=== PATIENT | female | born 1985 | race Caucasian/White ===

== ENCOUNTER → 2020-02-14 14:08 | Outpatient (BNVA) | payer SELFPAY | PROVIDERS: Family Provider Family Medicine; PCP Family Medicine; Visit Provider Nurse Practitioner Women's Health | DX: Z01.419 Encounter for gynecological examination (general) (routine) without abnormal findings (principal); N92.0 Excessive and frequent menstruation with regular cycle | CPT/HCPCS: 88175 ==

== ENCOUNTER 2025-01-16 11:58 | Outpatient (CLI) | payer SELFPAY ==
--- NOTE | 2025-01-16 12:06 | MR_ITS ---
WS: [id number] MRI LUMBAR SPINE NONCONTRAST TECHNIQUE: Sagittal T1, T2 and STIR imaging. Axial T1 and T2 imaging. CLINICAL INFORMATION: CHRONIC LEFT SIDE LOW BACK PAIN W/L SIDED SCIATICA/LUMBAGO COMPARISON: None. FINDINGS: 7 cervical 12 thoracic and 4 nonrib bearing lumbar vertebral bodies. First sacral segment considered L5 for the purposes of this dictation. Recommend plain film correlation prior to surgical intervention. Large partially visualized cystic lesion inferior to the RIGHT hepatic lobe and adjacent to the RIGHT kidney. This measures 8.2 x 5.5 cm. This can followed up with contrast-enhanced CT abdomen pelvis or ultrasound. This is increased in size since 2010. L1-L2: Mild facet arthropathy. Spinal canal and foramen are patent. L2-L3: Mild annular bulging. Mild facet arthropathy. Spinal canal is patent. L3-L4: Mild annular bulging with slight narrowing of the LEFT greater than RIGHT subarticular recess. Moderate facet arthropathy. Foramen are patent. L4-L5: Prominent LEFT subarticular protrusion impinges the LEFT aspect of the thecal sac and traversing LEFT L5 and S1 nerve roots. Disc material measures 4 to 5 mm in AP dimension. Moderate LEFT RIGHT narrowing of the thecal sac. Mild LEFT foraminal narrowing. Moderate facet arthropathy. L5-S1: First sacral segment considered L5. Spinal canal and foramen are patent. Visualized pelvic bony structures: Normal. Paravertebral soft tissues: Normal. 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 7 cervical 12 thoracic and 4 nonrib bearing lumbar vertebral bodies. First sacral segment considered L5 for the purposes of this dictation. Recommend plai n film correlation prior to surgical intervention. 2. Prominence LEFT paracentral and subarticular protrusion L4-5 impinges the traversing left-sided nerve roots with moderate narrowing of the thecal sac. M ild LEFT L4-5 foraminal narrowing at this level. 3. Mild annular bulging L3-4 with narrowing of the LEFT greater than RIGHT sub articular recess. 4. Moderate facet arthropathy L3-4 and L4-5. 5. Large partially visualized cystic lesion inferior to the RIGHT hepatic lobe and adjacent to the RIGHT kidney. This measures 8.2 x 5.5 cm. This can followe d up with contrast-enhanced CT abdomen pelvis or ultrasound. This is increased in size since 2010.
== END 2025-01-16 11:59 | disposition home or self-care (01) ==
PROVIDERS: PCP Family Medicine; Visit Provider Nurse Practitioner Family
DX: M47.816 Spondylosis without myelopathy or radiculopathy, lumbar region (principal); M51.360 Other intervertebral disc degeneration, lumbar region with discogenic back pain only
CPT/HCPCS: 72148